=== PATIENT | female | born 1975 | race Caucasian/White ===

== ENCOUNTER → 2017-08-03 | Outpatient (REF) | payer BC ==
[2017-08-03 14:30] LABS: REASON FOR REVIEW COMPREHENSIVE REVIEW
[2017-08-03 14:40] LABS: IMMUNOGLOBULIN G 881 MG/DL (681-1648); IMMUNOGLOBULIN M 276 MG/DL (40-230); TOTAL PROTEIN 7.1 GM/DL (6.4-8.2)
[2017-08-06 10:52] LABS: ALBUMIN 4.04 GM/DL (3.29-5.55); ALBUMIN % 56.9 % (55.8-66.1); GAMMA GLOBULIN % 14.9 % (11.1-18.8)
[2017-08-07 14:23] LABS: FREE KAPPA LIGHT CHAINS SERUM 15.8 mg/L (3.3-19.4); FREE LAMBDA LIGHT CHAINS SERUM 19.8 mg/L (5.7-26.3)
== END ==
LOC: M LAB REF 12:43
PROVIDERS: ATTEND Internal Medicine Medical Oncology
DX: D80.5 Immunodeficiency with increased immunoglobulin M [IgM] (principal)

== ENCOUNTER → 2017-11-13 | Outpatient (CLI) | payer BC | LOC: M PLARAD 10:19 | DX: R59.0 Localized enlarged lymph nodes (principal); N20.0 Calculus of kidney | CPT/HCPCS: 78815 ==